=== PATIENT | male | born 1940 | race African-American/Black ===

== ENCOUNTER 2024-03-03 21:08 | Inpatient (IN) | payer MEDICARE ==
[2024-03-03] MEDS ORDERED: NOREPINEPHRINE 8 MG/250 ML-D5W 250 ML ONE (21:15)
[2024-03-03] MEDS ORDERED: Acetaminophen 650 MG Suppository PR PRN (23:37)
[2024-03-04] MEDS: Acetaminophen 500 MG TAB PO SCH (00:44)
[2024-03-04 00:58] LABS: Lactic Acid 3.96 mmol/L (0.5-2.2)
[2024-03-04] MEDS: Sodium Chloride 0.9% 1,000 ML IV SCH (01:13)
[2024-03-04] MEDS: cefTRIAXone\\ROCEPHIN 2 GM in Sodium Chloride 0.9% 100 ML IVPB SCH (01:24)
[2024-03-04] MEDS ORDERED: Vancomycin Dose by Levels Sliding Scale (Wt 71-99) FS SCH ×2 (02:00→18:00)
[2024-03-04] MEDS: Vancomycin (BATCH) 1.75 GM in Premix 1 BAG IVPB SCH (02:09)
[2024-03-04 02:12] LABS: Troponin I 0.123 ng/mL (< 0.028)
[2024-03-04 04:12] VITALS: BMI 26.9
[2024-03-04 04:56] LABS: Hematocrit 25.6 % (42.0-52.0); Hemoglobin 8.5 g/dL (14.0-18.0); Mean Corpuscular HGB CONC 33.2 g/dL (32.0-36.0); Mean Corpuscular Hemoglobin 28.8 pg (27.0-31.0); Mean Corpuscular Volume 86.8 fL (78.0-98.0); Platelet Count 45 10x3/uL (130-400); RBC Distribution Width 13.9 % (11.5-14.5); Red Blood Cell (RBC) Count 2.95 mill/uL (4.70-6.10)
[2024-03-04 05:19] LABS: Band 20 % (5-11); Burr Cells SLIGHT = 2-5 cells HPF (0-1); Metamyelocyte 2 % (0-0); Monocytes 4 % (0-10); Myelocyte 1 % (0-0); Neutrophil 73 % (42-75); Platelet Adequacy Comment Platelets Decreased; Smudge Cells 2.9 %
[2024-03-04 05:35] LABS: ALT (SGPT) 13 U/L (8-55); AST (SGOT) 13 U/L (5-34); Albumin 2.6 g/dL (3.4-4.8); Alkaline Phosphatase 40 U/L (40-110); Anion Gap 15 mmol/L (10-20); BUN (Urea Nitrogen) 26 mg/dL (8.4-25.7); Bilirubin, Total 0.5 mg/dL (0.2-1.2); Calc. Creatinine Clearance 25 mL/min (70-130); Calcium 7.8 mg/dL (7.8-10.44); Carbon Dioxide 16 mmol/L (23-31); Chloride 113 mmol/L (98-107); Estimated GFR 22; Globulin 2.1 g/dL (2.4-3.5); Glucose 83 mg/dL (83-110); Potassium 3.5 mmol/L (3.5-5.1); Protein, Total 4.7 g/dL (5.8-8.1); Sodium 140 mmol/L (136-145)
[2024-03-04] MEDS ORDERED: ABX IVPB PRN (06:19)
[2024-03-04 06:38] LABS: Troponin I 0.053 ng/mL (< 0.028)
[2024-03-04] MEDS: Sodium Bicarbonate 150 MEQ in Dextrose 5% in Water 1,000 ML IV SCH (06:40)
[2024-03-04] MEDS: LevoFLOXacin 750 mg/D5W 750 MG in Premix 1 BAG IVPB SCH (06:47)
[2024-03-04] MEDS: Ondansetron PF 4 MG/2 ML Vial IVP PRN (07:26)
[2024-03-04] MEDS: traMADol HCl 50 MG TAB PO PRN (07:26)
[2024-03-04] MEDS ORDERED: Vancomycin 1.5 GM in Sodium Chloride 0.9% 250 ML 300 ML IVPB SCH (09:00)
[2024-03-04] MEDS: Sodium Chloride 0.45% 1,000 ML IV SCH (10:23)
[2024-03-04] MEDS ORDERED: Promethazine HCl 25 MG/ML VIAL IM PRN (14:30)
[2024-03-04] MEDS: Acetaminophen 325 MG TAB PO PRN (16:08)
[2024-03-04] MEDS: Piperacillin/Tazobactam 3.375 GM in Sodium Chloride 0.9% 100 ML IVPB SCH ×2 (18:08→18:27)
[2024-03-04] MEDS: Pantoprazole DR 40 MG TAB PO SCH (18:27)
[2024-03-04 19:05] LABS: Hematocrit 27.8 % (42.0-52.0); Hemoglobin 9.2 g/dL (14.0-18.0); Mean Corpuscular HGB CONC 33.1 g/dL (32.0-36.0); Mean Corpuscular Hemoglobin 28.8 pg (27.0-31.0); Mean Corpuscular Volume 87.1 fL (78.0-98.0); Platelet Count 46 10x3/uL (130-400); RBC Distribution Width 14.1 % (11.5-14.5); Red Blood Cell (RBC) Count 3.19 mill/uL (4.70-6.10)
[2024-03-04 19:17] LABS: Anion Gap 11 mmol/L (10-20); BUN (Urea Nitrogen) 33 mg/dL (8.4-25.7); Calc. Creatinine Clearance 28 mL/min (70-130); Calcium 7.6 mg/dL (7.8-10.44); Carbon Dioxide 21 mmol/L (23-31); Chloride 110 mmol/L (98-107); Estimated GFR 25; Glucose 75 mg/dL (83-110); Potassium 4.2 mmol/L (3.5-5.1); Sodium 138 mmol/L (136-145)
[2024-03-04 19:27] LABS: Anisocytosis MODERATE=16-30 cells HPF (0-5); Band 32 % (5-11); Burr Cells SLIGHT = 2-5 cells HPF (0-1); Elliptocytes SLIGHT = 2-5 cells HPF (0-1); Macrocytosis SLIGHT = 6-15 cells HPF (0-5); Monocytes 7 % (0-10); Neutrophil 61 % (42-75); Platelet Adequacy Comment Platelets Decreased; Poikilocytosis SLIGHT = 6-15 cells HPF (0-5); Polychromasia SLIGHT = 2-3 cells HPF (0-2); Smudge Cells 4.9 %
[2024-03-04] MEDS ORDERED: cefTRIAXone\\ROCEPHIN 1 GM in Sodium Chloride 0.9% 100 ML IVPB SCH (20:00)
[2024-03-04] MEDS ORDERED: Vancomycin 1 GM in Premix 1 BAG IVPB SCH (21:00)
[2024-03-05] MEDS: NOREPINEPHRINE 8 MG/250 ML-D5W 250 ML IVPB SCH (01:59)
[2024-03-05] MEDS: Piperacillin/Tazobactam 3.375 GM in Sodium Chloride 0.9% 100 ML IVPB SCH (02:00)
[2024-03-05 06:01] LABS: Anion Gap 13 mmol/L (10-20); BUN (Urea Nitrogen) 35 mg/dL (8.4-25.7); Calc. Creatinine Clearance 28 mL/min (70-130); Calcium 7.7 mg/dL (7.8-10.44); Carbon Dioxide 20 mmol/L (23-31); Chloride 110 mmol/L (98-107); Estimated GFR 24; Glucose 69 mg/dL (83-110); Potassium 3.5 mmol/L (3.5-5.1); Sodium 139 mmol/L (136-145)
[2024-03-05 06:24] LABS: Hematocrit 26.8 % (42.0-52.0); Hemoglobin 8.8 g/dL (14.0-18.0); Mean Corpuscular HGB CONC 32.8 g/dL (32.0-36.0); Mean Corpuscular Hemoglobin 28.7 pg (27.0-31.0); Mean Corpuscular Volume 87.3 fL (78.0-98.0); Platelet Count 36 10x3/uL (130-400); RBC Distribution Width 14.3 % (11.5-14.5); Red Blood Cell (RBC) Count 3.07 mill/uL (4.70-6.10)
[2024-03-05 08:04] LABS: Reflex for Review?? YES
[2024-03-05] MEDS: Tamsulosin HCl 0.4 MG CAP PO SCH (09:28)
[2024-03-05] MEDS: Pantoprazole DR 40 MG TAB PO SCH (09:29)
[2024-03-05] MEDS: Floranex 1 GM Packet PO SCH (09:29)
[2024-03-05 09:42] LABS: Anisocytosis SLIGHT = 6-15 cells HPF (0-5); Band 31 % (5-11); Burr Cells MODERATE= 6-15 cells HPF (0-1); Elliptocytes SLIGHT = 2-5 cells HPF (0-1); Lymphocytes 1 % (21-51); Macrocytosis SLIGHT = 6-15 cells HPF (0-5); Metamyelocyte 3 % (0-0); Monocytes 4 % (0-10); Myelocyte 1 % (0-0); Neutrophil 60 % (42-75); Nucleated RBC (Manual Ct) 1 % (0); Platelet Adequacy Comment Platelets Decreased; Poikilocytosis MODERATE=16-30 cells HPF (0-5); Polychromasia SLIGHT = 2-3 cells HPF (0-2); Schistocytes SLIGHT = 2-5 cells HPF (0-1); Smudge Cells 1.9 %; Vacuoles SLIGHT
[2024-03-05] MEDS: methylPREDNISolone Sod Succ 40 MG VIAL IVP SCH (17:28)
[2024-03-05] MEDS: Guaifenesin DM 100-10/5 ML UDCUP PO PRN (21:18)
[2024-03-06 05:27] LABS: Anion Gap 11 mmol/L (10-20); BUN (Urea Nitrogen) 32 mg/dL (8.4-25.7); Calc. Creatinine Clearance 36 mL/min (70-130); Calcium 7.7 mg/dL (7.8-10.44); Carbon Dioxide 20 mmol/L (23-31); Chloride 113 mmol/L (98-107); Estimated GFR 32; Glucose 130 mg/dL (83-110); Potassium 4.1 mmol/L (3.5-5.1); Sodium 140 mmol/L (136-145)
[2024-03-07 04:57] LABS: #Basophils 0.04 10x3/uL (0.0-0.2); %Basophils 0.2 % (0.0-1.0); %Eosinophils 0.4 % (0.0-10.0); %Lymphocytes 3.2 % (21.0-51.0); %Monocytes 4.4 % (0.0-10.0); %Neutrophils 90.2 % (42.0-75.0); Hematocrit 25.3 % (42.0-52.0); Hemoglobin 8.3 g/dL (14.0-18.0); Mean Corpuscular HGB CONC 32.8 g/dL (32.0-36.0); Mean Corpuscular Hemoglobin 28.5 pg (27.0-31.0); Mean Corpuscular Volume 86.9 fL (78.0-98.0); Platelet Count 34 10x3/uL (130-400); RBC Distribution Width 14.4 % (11.5-14.5); Red Blood Cell (RBC) Count 2.91 mill/uL (4.70-6.10)
[2024-03-07 05:16] LABS: Anion Gap 10 mmol/L (10-20); BUN (Urea Nitrogen) 36 mg/dL (8.4-25.7); Calc. Creatinine Clearance 42 mL/min (70-130); Calcium 7.5 mg/dL (7.8-10.44); Carbon Dioxide 21 mmol/L (23-31); Chloride 113 mmol/L (98-107); Estimated GFR 38; Glucose 103 mg/dL (83-110); Potassium 3.5 mmol/L (3.5-5.1); Sodium 140 mmol/L (136-145)
[2024-03-07] MEDS: Sodium Chloride 0.45% 1,000 ML IV SCH (11:07)
[2024-03-07] MEDS: Ipratropium/Albuterol 3 ML NEB NEB SCH (14:19)
[2024-03-07] MEDS: guaiFENesin/DM ER PO SCH (20:06)
[2024-03-08 07:26] LABS: #Basophils Less than 0.03 10x3/uL (0.0-0.2); %Basophils 0.2 % (0.0-1.0); %Eosinophils 0.4 % (0.0-10.0); %Lymphocytes 8.7 % (21.0-51.0); %Monocytes 11.8 % (0.0-10.0); %Neutrophils 77.2 % (42.0-75.0); Hematocrit 27.4 % (42.0-52.0); Hemoglobin 9.1 g/dL (14.0-18.0); Mean Corpuscular HGB CONC 33.2 g/dL (32.0-36.0); Mean Corpuscular Hemoglobin 27.7 pg (27.0-31.0); Mean Corpuscular Volume 83.5 fL (78.0-98.0); Platelet Count 32 10x3/uL (130-400); RBC Distribution Width 14.4 % (11.5-14.5); Red Blood Cell (RBC) Count 3.28 mill/uL (4.70-6.10)
[2024-03-08 07:34] LABS: Fibrinogen 358 mg/dL (253-463)
[2024-03-08 07:37] LABS: PTT 32.6 sec (22.9-36.1)
[2024-03-08 07:38] LABS: INR-International Normal Ratio 1.2; Prothrombin Time 14.9 sec (12.0-14.7)
[2024-03-08 07:42] LABS: D-Dimer Test 8.79 mcg/mL (0.27-0.43)
[2024-03-08 07:47] LABS: Anion Gap 9 mmol/L (10-20); BUN (Urea Nitrogen) 29 mg/dL (8.4-25.7); Calc. Creatinine Clearance 49 mL/min (70-130); Calcium 8.1 mg/dL (7.8-10.44); Carbon Dioxide 20 mmol/L (23-31); Chloride 114 mmol/L (98-107); Estimated GFR 44; Glucose 80 mg/dL (83-110); Potassium 3.5 mmol/L (3.5-5.1); Sodium 139 mmol/L (136-145)
[2024-03-08 08:01] LABS: HBsAg Index 0.45 S/CO (0-0.99); Hep A IgM AB NONREACTIVE (NonReactive); Hep A IgM S/CO 0.15 S/CO (0-0.79); Hep B Core IgM Index 0.07 S/CO (0-0.79); Hep B Surf Ag NONREACTIVE S/CO (NonReactive); Hep C IgG Ab NONREACTIVE S/CO (NonReactive); Hep C Index 0.08 S/CO (0-0.79); Hepatitis B Core IgM Abs NONREACTIVE S/CO (NonReactive)
[2024-03-08] MEDS: Lidocaine 4% Patch TD SCH (08:07)
[2024-03-08] MEDS ORDERED: Ciprofloxacin 500 MG TAB PO SCH (11:00)
[2024-03-08] MEDS: Piperacillin/Tazobactam 3.375 GM in Sodium Chloride 0.9% 100 ML IVPB SCH (11:26)
[2024-03-08] MEDS: Lactated Ringer's 1,000 ML IV SCH (11:31)
[2024-03-08] MEDS: BENZOCAINE/MENTHOL/ZINC CHLOR 5.1 GM TUBE TOP PRN (11:42)
[2024-03-08] MEDS: Ipratropium/Albuterol 3 ML NEB NEB SCH (12:40)
[2024-03-08] MEDS: Piperacillin/Tazobactam 4.5 GM in Sodium Chloride 0.9% 100 ML IVPB SCH (19:43)
[2024-03-08] MEDS: Transdermal Patch Removal TOP SCH (21:45)
[2024-03-09 06:32] LABS: Anion Gap 9 mmol/L (10-20); BUN (Urea Nitrogen) 22 mg/dL (8.4-25.7); Calc. Creatinine Clearance 55 mL/min (70-130); Calcium 8.3 mg/dL (7.8-10.44); Carbon Dioxide 23 mmol/L (23-31); Chloride 109 mmol/L (98-107); Estimated GFR 51; Glucose 81 mg/dL (83-110); Potassium 3.8 mmol/L (3.5-5.1); Sodium 137 mmol/L (136-145)
[2024-03-09 06:38] LABS: INR-International Normal Ratio 1.2; PTT 39.6 sec (22.9-36.1); Prothrombin Time 15.5 sec (12.0-14.7)
[2024-03-09 13:12] LABS: Hematocrit 24.9 % (42.0-52.0); Hemoglobin 8.3 g/dL (14.0-18.0); Mean Corpuscular HGB CONC 33.3 g/dL (32.0-36.0); Mean Corpuscular Hemoglobin 28.3 pg (27.0-31.0); Platelet Count 38 10x3/uL (130-400); RBC Distribution Width 14.1 % (11.5-14.5); Red Blood Cell (RBC) Count 2.93 mill/uL (4.70-6.10)
[2024-03-09 15:02] LABS: Hypochromia SLIGHT = 6-15 cells HPF (0-5); Large Platelets 4.9 % (0-5); Lymphocytes 3 % (21-51); Monocytes 9 % (0-10); Neutrophil 88 % (42-75); Ovalocytes SLIGHT = 2-5 cells HPF (0-1); Platelet Adequacy Comment Significant Decrease; Polychromasia SLIGHT = 2-3 cells HPF (0-2); Schistocytes SLIGHT = 2-5 cells HPF (0-1)
[2024-03-10 05:38] LABS: Anion Gap 10 mmol/L (10-20); BUN (Urea Nitrogen) 24 mg/dL (8.4-25.7); Calc. Creatinine Clearance 52 mL/min (70-130); Calcium 8.4 mg/dL (7.8-10.44); Carbon Dioxide 23 mmol/L (23-31); Chloride 109 mmol/L (98-107); Estimated GFR 47; Glucose 82 mg/dL (83-110); Potassium 3.5 mmol/L (3.5-5.1); Sodium 138 mmol/L (136-145)
[2024-03-10 05:41] LABS: INR-International Normal Ratio 1.3; PTT 43.5 sec (22.9-36.1); Prothrombin Time 16.6 sec (12.0-14.7)
[2024-03-10 05:53] LABS: Hematocrit 24.8 % (42.0-52.0); Hemoglobin 8.5 g/dL (14.0-18.0); Mean Corpuscular HGB CONC 34.3 g/dL (32.0-36.0); Mean Corpuscular Hemoglobin 28.3 pg (27.0-31.0); Mean Corpuscular Volume 82.7 fL (78.0-98.0); Platelet Count 46 10x3/uL (130-400); RBC Distribution Width 14.4 % (11.5-14.5)
[2024-03-10 07:56] LABS: Band 7 % (5-11); Burr Cells SLIGHT = 2-5 cells HPF (0-1); Large Platelets 11.4 % (0-5); Lymphocytes 4 % (21-51); Monocytes 15 % (0-10); Neutrophil 74 % (42-75); Platelet Adequacy Comment Significant Decrease; Schistocytes SLIGHT = 2-5 cells HPF (0-1)
[2024-03-10 14:00] VITALS: BMI 28.7
[2024-03-10] MEDS: traMADol HCl 50 MG TAB PO PRN (20:37)
[2024-03-11 04:52] LABS: Hematocrit 22.9 % (42.0-52.0); Hemoglobin 7.6 g/dL (14.0-18.0); Mean Corpuscular HGB CONC 33.2 g/dL (32.0-36.0); Mean Corpuscular Hemoglobin 28.1 pg (27.0-31.0); Mean Corpuscular Volume 84.8 fL (78.0-98.0); Mean Platelet Volume 13.3 fL (7.4-10.4); Platelet Count 74 10x3/uL (130-400); RBC Distribution Width 14.2 % (11.5-14.5)
[2024-03-11 04:58] LABS: Anion Gap 9 mmol/L (10-20); BUN (Urea Nitrogen) 25 mg/dL (8.4-25.7); Calc. Creatinine Clearance 51 mL/min (70-130); Calcium 8.3 mg/dL (7.8-10.44); Carbon Dioxide 25 mmol/L (23-31); Chloride 108 mmol/L (98-107); Estimated GFR 46; Glucose 87 mg/dL (83-110); Potassium 3.3 mmol/L (3.5-5.1); Sodium 139 mmol/L (136-145)
[2024-03-11 05:02] LABS: INR-International Normal Ratio 1.2; PTT 36.9 sec (22.9-36.1); Prothrombin Time 15.6 sec (12.0-14.7)
[2024-03-11 05:50] LABS: Anisocytosis SLIGHT = 6-15 cells HPF (0-5); Eosinophils 3 % (0-10); Hypochromia SLIGHT = 6-15 cells HPF (0-5); Lymphocytes 7 % (21-51); Metamyelocyte 4 % (0-0); Microcytosis SLIGHT = 6-15 cells HPF (0-5); Monocytes 7 % (0-10); Neutrophil 78 % (42-75); Ovalocytes SLIGHT = 2-5 cells HPF (0-1); Platelet Adequacy Comment Platelets Decreased; Polychromasia SLIGHT = 2-3 cells HPF (0-2); Target Cells SLIGHT = 2-5 cells HPF (0-1); Tear Drops SLIGHT = 2-5 cells HPF (0-1)
[2024-03-11] MEDS: Carvedilol 25 MG TAB PO SCH (10:36)
[2024-03-11] MEDS: Benzocaine 20% Spray 60 ML CAN TOP PRN (10:38)
[2024-03-11] MEDS: Potassium Chloride 20 MEQ TAB PO SCH (12:58)
[2024-03-11 14:48] VITALS: BP 112/67; TEMP 98.8
[2024-03-11] MEDS ORDERED: Carvedilol 25 MG TAB PO SCH (21:00)
[2024-03-12] MEDS ORDERED: Atorvastatin Calcium 10 MG TAB PO SCH (09:00)
== END 2024-03-11 14:44 | disposition home or self-care (01) | DRG 871 ==
LOC: SUATTDRO 21:08 → ERS 21:08 → CCU 23:15 → IMCU/EMU 03-06 17:56 → MSONC 03-07 18:29
PROVIDERS: ADMIT Family Medicine; ATTEND Internal Medicine
PROC: 06HY33Z Insertion of Infusion Device into Lower Vein, Percutaneous Approach (ICD-10-PCS; principal; 2024-03-03)
PROC: 3E03329 Introduction of Other Anti-infective into Peripheral Vein, Percutaneous Approach (ICD-10-PCS; 2024-03-03)
PROC: 3E033XZ Introduction of Vasopressor into Peripheral Vein, Percutaneous Approach (ICD-10-PCS; 2024-03-03)
DX: A41.51 Sepsis due to Escherichia coli [E. coli] (principal); I21.A1 Myocardial infarction type 2; R65.21 Severe sepsis with septic shock; N17.9 Acute kidney failure, unspecified; N12 Tubulo-interstitial nephritis, not specified as acute or chronic; I13.0 Hypertensive heart and chronic kidney disease with heart failure and stage 1 through stage 4 chronic kidney disease, or unspecified chronic kidney disease; I50.22 Chronic systolic (congestive) heart failure; E87.20 Acidosis, unspecified; N18.9 Chronic kidney disease, unspecified; D69.6 Thrombocytopenia, unspecified; N40.1 Benign prostatic hyperplasia with lower urinary tract symptoms; D64.9 Anemia, unspecified
CPT/HCPCS: 36415; 36556; 71250; 74176; 74177; 76770; 80048; 80053; 80074; 82533; 83605; 84484; 85025; 85049; 85060; 85300; 85362; 85384; 85610; 85730; 87040; 87086; 93005; 93306; 94640; 96374; J1956; J2405; J2543; J2919; J3370; J7030; J7070; J7120; J7620